=== PATIENT | female | born 1940 | race Caucasian/White ===

== ENCOUNTER 2022-03-05 14:48 | Inpatient (IN) | payer MEDICARE ==
[2022-03-05] MEDS ORDERED: Acetaminophen 325 MG TAB PO PRN (17:30)
[2022-03-05] MEDS ORDERED: Ondansetron PF 4 MG/2 ML Vial IVP PRN (17:30)
[2022-03-05 17:51] VITALS: BMI 31.6
[2022-03-05] MEDS ORDERED: Bisacodyl 5 MG TAB PO PRN (18:07)
[2022-03-05] MEDS ORDERED: Senokot S 8.6-50 MG TAB PO PRN (18:07)
[2022-03-05] MEDS ORDERED: Melatonin 3 MG TAB PO PRN (18:09)
[2022-03-05] MEDS ORDERED: Labetalol HCl 100 MG/20 ML VIAL SLOW IVP PRN (18:10)
[2022-03-05] MEDS ORDERED: Diltiazem 125 MG in Sodium Chloride 0.9% 100 ML IVPB SCH (18:15)
[2022-03-05] MEDS ORDERED: Sodium Chloride 0.9% 1,000 ML IV SCH (23:30)
[2022-03-06 04:59] LABS: #Basophils 0.1 thou/uL (0.0-0.2); #Eosinphils 0.1 thou/uL (0.0-0.7); #Lymphocytes 2.5 thou/uL (1.20-3.40); #Monocytes 0.8 thou/uL (0.11-0.59); #Neutrophils 2.4 thou/uL (1.40-6.50); %Basophils 0.9 % (0.0-1.0); %Eosinophils 2.2 % (0.0-10.0); %Monocytes 13.2 % (0.0-10.0); %Neutrophils 40.7 % (42.0-75.0); Mean Corpuscular HGB CONC 32.2 g/dL (32.0-36.0); Mean Corpuscular Hemoglobin 31.2 pg (27.0-31.0); Mean Corpuscular Volume 96.8 fL (78.0-98.0); Mean Platelet Volume 7.8 fL (7.4-10.4); Platelet Count 321 thou/uL (130-400); RBC Distribution Width 13.2 % (11.5-14.5); Red Blood Cell (RBC) Count 4.48 mill/uL (4.20-5.40); White Blood Cell (WBC) Count 5.9 thou/uL (4.8-10.8)
[2022-03-06 05:19] LABS: ALT (SGPT) 25 U/L (8-55); AST (SGOT) 37 U/L (5-34); Albumin 3.8 g/dL (3.4-4.8); Alkaline Phosphatase 91 U/L (40-110); Anion Gap 14 mmol/L (10-20); BUN (Urea Nitrogen) 13 mg/dL (9.8-20.1); Bilirubin, Total 1.9 mg/dL (0.2-1.2); Calc. Creatinine Clearance 72 mL/min (70-130); Calcium 9.1 mg/dL (7.8-10.44); Carbon Dioxide 24 mmol/L (23-31); Chloride 107 mmol/L (98-107); Globulin 2.5 g/dL (2.4-3.5); Glucose 95 mg/dL (83-110); Potassium 3.5 mmol/L (3.5-5.1); Protein, Total 6.3 g/dL (5.8-8.1); Sodium 141 mmol/L (136-145)
[2022-03-06] MEDS ORDERED: Lidocaine 1% (PF) 30 ML VIAL ONE (08:56)
[2022-03-06] MEDS ORDERED: Heparin 10,000 UNITS/ 10 ML VIAL ONE (08:56)
[2022-03-06] MEDS ORDERED: Isoproterenol 0.2 MG/1 ML AMP ONE (08:56)
[2022-03-06] MEDS ORDERED: Propofol 1,000 MG/100 ML VIAL IV ONE (09:33)
[2022-03-06] MEDS ORDERED: PROPOFOL 200 MG/20 ML VIAL ONE (10:11)
[2022-03-06] MEDS ORDERED: Lidocaine 1% PF 5 ML VIAL ONE (10:11)
[2022-03-06] MEDS ORDERED: PHENYLEPHRINE-NS 100 MCG/ML 10 ML SYRINGE ONE (10:11)
[2022-03-06] MEDS ORDERED: Hydrocortisone 1% Cream 30 GM TUBE TOP SCH (13:45)
[2022-03-06] MEDS: Flecainide 50 MG TAB PO SCH (21:19)
[2022-03-06] MEDS: Apixaban 5 MG TAB PO SCH (21:19)
[2022-03-06] MEDS ORDERED: Diltiazem HCl 125 MG in Premix Bag 1 BAG IVPB SCH (23:00)
[2022-03-07 07:46] VITALS: TEMP 97.6
[2022-03-07] MEDS: Flecainide 50 MG TAB PO SCH (07:50)
[2022-03-07] MEDS: Apixaban 5 MG TAB PO SCH (07:50)
[2022-03-07] MEDS ORDERED: Potassium Bicarbonate/Cit Ac 20 MEQ TAB PO SCH (08:30)
[2022-03-07] MEDS ORDERED: Magnesium 2 GM/50 ML(in water) 2 GM in Premix Bag 1 BAG IVPB SCH (08:30)
[2022-03-07 11:52] VITALS: BP 109/63
== END 2022-03-07 13:18 | disposition home or self-care (01) | DRG 274 ==
LOC: 2NO 14:48
PROVIDERS: ADMIT Family Medicine; ATTEND Hospitalist
PROC: 02573ZK Destruction of Left Atrial Appendage, Percutaneous Approach (ICD-10-PCS; principal; 2022-03-06)
PROC: 02K83ZZ Map Conduction Mechanism, Percutaneous Approach (ICD-10-PCS; 2022-03-06)
PROC: 5A2204Z Restoration of Cardiac Rhythm, Single (ICD-10-PCS; 2022-03-06)
PROC: 4A023N6 Measurement of Cardiac Sampling and Pressure, Right Heart, Percutaneous Approach (ICD-10-PCS; 2022-03-06)
DX: I48.91 Unspecified atrial fibrillation (principal); I47.1 Supraventricular tachycardia; I48.92 Unspecified atrial flutter; I34.0 Nonrheumatic mitral (valve) insufficiency; I51.7 Cardiomegaly; E80.6 Other disorders of bilirubin metabolism; E78.5 Hyperlipidemia, unspecified; Z79.899 Other long term (current) drug therapy; Z79.01 Long term (current) use of anticoagulants
CPT/HCPCS: 36415; 80053; 85025; 93005; 93010; 93312; 93451; 93613; 93653; C1731; C2630; J1644; J2001; J2704; J3475; J7050